=== PATIENT | female | born 1990 | race Caucasian/White ===

== ENCOUNTER 2017-06-02 15:13 | Emergency (ER) | payer OTHER ==
[~2017-06-02] VITALS: Ht 175.3 cm; Wt 108.9 kg
[~2017-06-02 15:13] MED LIST: ORUDIS75 M1 PO
[2017-06-02 17:08] LABS: URINE SOURCE CLEAN CATCH
[2017-06-02 17:14] LABS: URINE APPEARANCE CLEAR; URINE BILIRUBIN NEG (NEG); URINE BLOOD NEG (NEG); URINE COLOR YELLOW; URINE GLUCOSE NEG (NEG); URINE KETONE NEG (NEG); URINE LEUKOCYTE ESTERASE 1+ (NEG); URINE NITRATE NEG (NEG); URINE PROTEIN NEG (NEG); URINE SPECIFIC GRAVITY 1.022 (1.003-1.035); URINE UROBILINOGEN 0.2 MG/DL (NEG)
[2017-06-02 17:19] LABS: CULTURE INDICATED? YES; URINE BACTERIA AUWI 1+ (NEGATIVE); URINE SQUAMOUS EPITHELIAL CELL FEW /[HPF]
== END 2017-06-02 17:35 | disposition home or self-care (01) ==
LOC: CFTX 15:13 → CED 15:13 → CFTX 16:48
PROVIDERS: Physician Assistant
DX: R19.7 Diarrhea, unspecified (principal); N30.00 Acute cystitis without hematuria
CPT/HCPCS: 81003; 84703; 87086; 99284; J1885

== ENCOUNTER 2017-06-30 14:10 | Emergency (ER) | payer OTHER ==
[~2017-06-30] VITALS: Ht 172.7 cm; Wt 95.2 kg
--- NOTE | ~2017-06-30 | US61 ---
[facility] A Service of [facility] & [facility] RADIOLOGY TEXT RESULTS PATIENT: DERIK WILLIAMSON LOCATION: CFTX : 91 UNIT #: [id number] AGE: [address]: Dianna Alvarado SEX: F ORDER DR: [id number] [facility] [address] [place], [place] [address] [id number] E MR#: [id number] Acc #: [id number] NAME: DERIK WILLIAMSON. : 1990 SEX: F STUDY DATE/TIME: 06/30/2017 16:21 UNIT: [facility] ROOM: STUDY DESCRIPTION: US /Mat <14Wk / Attending Physician: Dianna Alvarado Pa-C Ordering Physician: Soto Alonzo M.D. Primary Care Physician: No Primary Care Physician MEDICAL IMAGING REPORT This report is preliminary unless electronic signature is present EXAM Pelvic ultrasound, 06/30/2017. HISTORY . Vaginal bleeding. Vaginal bleeding 4 days. Quantitative beta HCG 2,903. FINDINGS Real-time ultrasonography of the pelvic structures performed transabdominally and transvaginally. Transvaginal imaging utilized for better visualization of uterine and adnexal structures. Visualized urinary bladder unremarkable. The uterus measures approximately 9.65 cm x 5.85 cm x 8.16 cm. Myometrium unremarkable. In the lower uterine segment, at upper cervix or just above the upper cervix, there is a heterogeneous mixed echogenicity structure measuring approximately 1.4 cm x 0.58 cm x 0.53 cm. There is fluid in this structure. I do not see normal yolk sac. There is an ovoid echogenic structure at the more cephalad aspect of the cystic component. Color Doppler interrogation shows no indication of vascular flow. I do not see clearly normal appearing pole. The appearance raises the possibility of spontaneous miscarriage in progress given the patient's stated symptoms. Abnormally low implantation of intrauterine , less likely though not excluded. Certainly I seen no cardiac activity in this heterogeneous structure. Please correlate with the patient's clinical presentation. Consider assessment with serial beta HCG and short-interval followup pelvic ultrasound. If this is a very early normally developing , it is implanted very low in the uterus or uppermost cervical canal. There is no free fluid in the pelvis. The left ovary demonstrates arterial flow and measures approximately 2.65 cm x 1.55 cm x 2.94 cm. The right ovary demonstrates arterial flow and measures about 2.85 cm x 1.83 cm x 2.50 cm. IMPRESSION 1. In the lower most uterine segment possibly involving the uppermost STS. [facility] A Service of [facility] RADIOLOGY TEXT RESULTS PATIENT: DERIK WILLIAMSON LOCATION: CFTX : 91 UNIT #: [id number] AGE: [address]: Dianna Alvarado SEX: F ORDER DR: cervical canal, there a heterogeneous cystic and solid-appearing ovoid structure measuring 1.4 cm x 5 mm x 5 mm. I see no normal-appearing yolk sac or normal appearing pole. There is a somewhat ovoid soft tissue echogenicity structure in the superior aspect of this overall cystic and solid finding. Color Doppler interrogation demonstrates no clear indication of vascular flow within this structure. The appearance is slightly nonspecific. The possibility of spontaneous in progress could be considered. If this is a very early normally developing , then it is abnormally implanted in the low uterine segment and/or uppermost uterine cervix. Please correlate with the patient's clinical presentation. Consider short-interval ultrasound followup and follow up with serial beta HCG. Obstetric followup recommended. 2. No free fluid the pelvis. 3. The bilateral ovaries are normal in appearance with vascular flow seen bilaterally. No corpus luteum of identified. Dictated by... Rashad Dawn M.D. THIS IS AN ELECTRONICALLY VERIFIED REPORT Rashad Dawn M.D. at 07/02/2017 10:01 PM JULITA/ynes TD: 07/01/2017 07:56 JOB #: [id number] MEDICAL IMAGING REPORT Page 1 of 1 COPY
[2017-06-30 15:09] LABS: URINE SOURCE CLEAN CATCH
[2017-06-30 15:15] LABS: URINE APPEARANCE CLOUDY; URINE BLOOD 3+ (NEG); URINE COLOR RED; URINE GLUCOSE NEG (NEG); URINE KETONE NEG (NEG); URINE LEUKOCYTE ESTERASE 2+ (NEG); URINE NITRATE NEG (NEG); URINE PROTEIN 3+ (NEG); URINE SPECIFIC GRAVITY 1.018 (1.003-1.035); URINE UROBILINOGEN 0.2 MG/DL (NEG)
[2017-06-30 15:17] LABS: CULTURE INDICATED? YES; URBCS1 AUWI INNUM /[HPF] (0-2); URINE BACTERIA AUWI NEG (NEGATIVE); URINE SQUAMOUS EPITHELIAL CELL MOD /[HPF]
[2017-06-30 15:19] LABS: BASOPHIL% 0.6 % (0-2.5); EOSINOPHIL# 0.1 X10e3 (0-0.7); HEMATOCRIT 37.5 % (35.0-45.0); HEMOGLOBIN 12.8 gm/dL (12.0-16.0); LYMPHOCYTE# 1.7 X10e3 (1.0-3.5); LYMPHOCYTE% 26.5 % (17.0-45.0); MEAN CELL VOLUME 90.9 FL (83-96); MEAN CORPUSCULAR HEMOGLOBIN 30.9 PG (28-34); MEAN PLATELET VOLUME 7.4 FL (6.5-11.5); MONOCYTE# 0.3 X10e3 (0-1.0); MONOCYTE% 4.8 % (3.0-12.0); NEUTROPHIL# 4.2 X10e3 (1.5-7.1); NEUTROPHIL% 67.1 % (40-75); PLATELET COUNT 254 X10e3 (140-420); RED BLOOD COUNT 4.13 X10e (3.90-5.30); RED CELL DISTRIBUTION WIDTH 12.7 % (11.0-15.5); WHITE BLOOD COUNT 6.3 X10e3 (4.0-10.5)
[2017-06-30 15:19] LABS: URINE BILIRUBIN POS (NEG)
[2017-06-30 15:21] LABS: DIFF IND NO
[2017-06-30 15:45] LABS: ALBUMIN SERUM 4.4 g/dL (3.5-5.0); BILIRUBIN, DIRECT 0.1 mg/dL (0.0-0.2); BILIRUBIN,INDIRECT 0.1 mg/dL (0.0-0.9); BILIRUBIN,TOTAL 0.2 mg/dL (0.2-2.0); BUN/CREATININE RATIO 12.85; CALCIUM SERUM 9.3 mg/dL (8.4-10.2); CREATININE SERUM 0.7 mg/dL (0.6-1.4); GLOM FILT RATE Estimated 119.6 mL/min (>60); POTASSIUM 3.9 mmol/L (3.5-5.1); PROTEIN TOTAL SERUM 7.3 g/dL (6.0-8.3)
== END 2017-06-30 17:39 | disposition home or self-care (01) ==
LOC: CED 14:10 → CFTX 14:10
DX: O20.0 Threatened abortion (principal); O99.330 Smoking (tobacco) complicating pregnancy, unspecified trimester; F17.200 Nicotine dependence, unspecified, uncomplicated; Z90.49 Acquired absence of other specified parts of digestive tract
CPT/HCPCS: 36415; 76801; 80048; 80076; 81003; 83690; 84702; 84703; 85025; 87086; 96360; 99284